=== PATIENT | male | born 1995 | race Caucasian/White ===

== ENCOUNTER 2018-03-15 05:07 | Emergency (ER) | payer OTHER ==
[~2018-03-15] VITALS: Ht 193 cm; Wt 104.3 kg
[~2018-03-15 05:07] MED LIST: ASP81EC PO; COLC1TAB3 PO; ENA2.5T PO; IBUP600T27 PO; METO25TA62 PO; OMEP20CA74 PO
[2018-03-15 05:12] VITALS: BP 127/77
== END 2018-03-15 09:03 | disposition home or self-care (01) ==
LOC: ER 05:16
DX: R50.9 Fever, unspecified (principal); R05 Cough; R07.0 Pain in throat; Z88.0 Allergy status to penicillin; Z79.82 Long term (current) use of aspirin; Z79.899 Other long term (current) drug therapy

== ENCOUNTER 2021-02-02 18:09 | Emergency (ER) | payer MEDICAID, OTHER ==
[~2021-02-02] VITALS: Ht 195.6 cm; Wt 113.4 kg
[~2021-02-02 18:09] MED LIST changes: -ASP81EC PO; +ASPI-394 PO; -ENA2.5T PO; +ENAL2.5T11 PO; -METO25TA62 PO; +METO25TA93 PO
[2021-02-02 23:19] VITALS: BP 143/97
== END 2021-02-03 01:26 | disposition home or self-care (01) ==
LOC: ER 18:09
DX: S13.4XXA Sprain of ligaments of cervical spine, initial encounter (principal); Z88.0 Allergy status to penicillin; V43.52XA Car driver injured in collision with other type car in traffic accident, initial encounter; Y93.89 Activity, other specified; Y92.89 Other specified places as the place of occurrence of the external cause; Y99.8 Other external cause status
CPT/HCPCS: 71250; 74176